=== PATIENT | female | born 1995 | race Caucasian/White ===

== ENCOUNTER 2020-12-01 01:31 | Emergency (ER) | payer OTHER, SELFPAY ==
--- NOTE | ~2020-12-01 | CT_ITS ---
EXAMINATION: CT ABDOMEN AND PELVIS WITH CONTRAST CLINICAL INFORMATION: Right lower quadrant pain COMPARISON: None TECHNIQUE: Multidetector volumetric images were obtained from the superior aspect of the liver through the pubic symphysis following administration 85 mL of Omnipaque 350 intravenous contrast. Sagittal and coronal reformatted images were obtained on the technologist's workstation. Oral contrast: No This CT examination was performed using dose optimization techniques as appropriate, variously including the following: *Automated exposure control *Adjustment of mA and/or kV according to patient size (this includes techniques or standardized protocols for targeted exams where dose is matched to indication/reason for exam; i.e. extremities or head) *Use of iterative reconstruction technique DLP: 310 mGy-cm FINDINGS: LUNG BASES: The visualized lung bases are unremarkable. LIVER, GALLBLADDER, AND BILIARY TREE: The liver is normal in size, shape, and attenuation. No focal hepatic lesion or biliary ductal dilatation is present. Gallbladder appears contracted. PANCREAS: Unremarkable. SPLEEN: Unremarkable. ADRENAL GLANDS: Unremarkable. KIDNEYS AND URETERS: The kidneys are normal in size, shape, and attenuation. No hydronephrosis, hydroureter, or obstructing calculi seen. No perinephric stranding. BLADDER: Partially distended and grossly unremarkable. GASTROINTESTINAL TRACT: Assessment for wall thickening in some segments of the colon is limited due to luminal collapse, though no significant pericolonic stranding is seen to strongly suggest a colitis. No evidence of bowel obstruction. The nondilated appendix containing foci of gas is suspected to course inferior to the cecum as seen on coronal image 30. No free fluid or free air is seen. ABDOMINAL WALL: No significant hernia is appreciated. LYMPH NODES: Normal. VASCULAR: Unremarkable. PELVIC VISCERA: Unremarkable. OSSEOUS STRUCTURES: Unremarkable. CT/CT abdomen pelvis w con IMPRESSION: No acute findings identified in the abdomen/pelvis.
[2020-12-01 02:14] VITALS: BP 114/73; PULSE 95; RESP 16; TEMP 36.7; O2SAT 95; BMI 18.0
--- NOTE | 2020-12-01 03:26 | PC.NURSE ---
IV established, labs and UA obtained. Pt aware of plan to await results and MD benjamin.
[2020-12-01 03:27] LABS: MANUAL DIFF FLAG NO
[2020-12-01 03:28] LABS: Basophils Percent Auto 0.1 % (0-2); Eosinophils Absolute Auto 0.1 X10*3/uL (0.0-0.4); Eosinophils Percent Auto 0.5 % (0-4); Hematocrit 47.2 % (37-47); Hemoglobin 16.3 g/dl (12.0-16.0); Imm Gran Abs Auto 0.04 X10*3/uL (0.00-0.03); Imm Gran Pct Auto 0.3 % (0.0-0.4); Lymphocytes Absolute Auto 2.4 X10*3/uL (1.2-4.9); Lymphocytes Percent Auto 15.9 % (20-40); Mean Corpuscular HGB Conc 34.5 g/dl (31.0-35.0); Mean Corpuscular Hemoglobin 33.4 pg (27.0-33.0); Mean Corpuscular Volume 96.7 fL (80-98); Mean Platelet Volume 9.5 fL (9.4-12.3); Monocytes Absolute Auto 1.2 X10*3/uL (0.1-1.2); Monocytes Percent Auto 7.9 % (2-11); Neutrophils Absolute Auto 11.5 X10*3/uL (2.0-8.3); Neutrophils Percent Auto 75.3 % (45-73); Platelet Count 362 X10*3/uL (160-400); Red Blood Count 4.88 X10*6/uL (4.20-5.50); Red Cell Distribution Width 12.7 % (11.0-16.0); White Blood Count 15.2 X10*3/uL (4.8-10.8)
[2020-12-01 03:50] LABS: Alanine Aminotransferase 12 U/L (0-31); Albumin Level 4.9 g/dL (3.5-5.0); Alkaline Phosphatase 108 U/L (39-117); Anion Gap 16 (12-20); Aspartate Amino Transferase 15 U/L (5-31); Bilirubin Total 0.6 mg/dL (0.0-1.0); Blood Urea Nitrogen 8 mg/dL (9-16); Calcium 10.3 mg/dL (8.4-10.2); Carbon Dioxide 28 mmol/L (22-29); Chloride 101 mmol/L (96-108); Creatinine Clr Calc Pharmacy 85.4; Estimated Glomerular Filt Rate > 60; Glucose Random 73 mg/dL (60-115); Glucose Urine UA NEG (NEG); Leukocyte Esterase Urine 3+ (NEG); Lipase 23 U/L (8-78); Nitrite Urine NEG (NEG); Potassium 3.6 mmol/L (3.3-5.1); Sodium 141 mmol/L (135-145); Total Protein 8.4 g/dL (6.5-8.0); UACC Culture Trigger YES; Urine Blood NEG (NEG); Urine Ketones NEG (NEG); Urine Protein NEG (NEG-TRACE)
[2020-12-01 03:52] LABS: Appearance Urine HAZY; Color Urine YELLOW
--- NOTE | 2020-12-01 04:04 | PC.NURSE ---
at bedside for primary eval.
[2020-12-01 04:10] LABS: Amorphous Sediment Urine TRACE /LPF; Mucus Urine 2+ /LPF; RBC Urine 0-2 /HPF (0); Squamous Epithelial Cell Urine 1+ /LPF; UPreg QC Valid YES; Urine Pregnancy NEGATIVE (NEGATIVE); WBC Clumps Urine NOTED
--- NOTE | 2020-12-01 04:17 | ED_ITS ---
HPI - Abdominal Pain General Chief Complaint: Abdominal Pain Stated Complaint: abdominal pain Time Seen by Provider: 12/01/20 04:08 Source: patient Mode of arrival: ambulatory History of Present Illness HPI narrative: 24-year-old female without significant past medical history presents with 2-3 weeks worsening abdominal pain that is associated with chills and nausea but no fevers or vomiting and denies any diarrhea or urinary pain/burning/frequency. Related Data Previous Rx's Medication Instructions Recorded cefixime 400 mg PO DAILY 7 Days #7 cap 12/01/20 Allergies Allergy/AdvReac Type Severity Reaction Status Date / Time No Known Allergies Allergy Unverified 12/01/20 02:13 Review of Systems Review of Systems Stated in HPI 10 point review of systems is otherwise negative. Physical Exam Vital Signs: Vital Signs: Last Vital Signs Temp 98.1 F 12/01/20 02:14 Pulse 95 12/01/20 02:14 Resp 16 12/01/20 02:14 BP 114/73 12/01/20 02:14 Pulse Ox 95 12/01/20 02:14 Body Mass Index 18.0 VITAL SIGNS: Reviewed. GENERAL: Well developed, well nourished, in no acute distress. HEAD: Normocephalic/atraumatic EYES: PERRLA, EOMI OROPHARYNX: no oral lesions noted, posterior pharynx clear NECK: Supple, no adenopathy LUNGS: Normal breath sounds. No adventitious sounds or accessory muscle use. SpO2<95> CARDIOVASCULAR: Regular rate and rhythm without noted murmurs ABDOMEN: Soft, tenderness and right lower quadrant/suprapubic area without rebound, non-distended with bowel sounds. Course Course Course Narrative: This is a 24-year-old female with history and clinical presentation suggestive of possible UTI, renal colic, appendicitis, ectopic . Review of all investigations consistent with UTI and possible pyelonephritis. Patient received 1 L of IV fluids as well as antibiotics, all results discussed with her bedside and she was discharged home in stable condition with a week- long course of treatment for pyelonephritis. MDM - Abdominal Pain Lab Data Result diagrams: 12/01/20 03:21 12/01/20 03:21 Labs: Lab Results 12/01/20 12/01/20 12/01/20 Range/Units 03:21 03:21 03:21 WBC 15.2 H (4.8-10.8) X10*3/uL RBC 4.88 (4.20-5.50) X10*6/uL Hgb 16.3 H (12.0-16.0) g/dl Hct 47.2 H (37-47) % MCV 96.7 (80-98) fL MCH 33.4 H (27.0-33.0) pg MCHC 34.5 (31.0-35.0) g/dl RDW 12.7 (11.0-16.0) % Plt Count 362 (160-400) X10*3/uL MPV 9.5 (9.4-12.3) fL Immature Gran % (Auto) 0.3 (0.0-0.4) % Neut % (Auto) 75.3 H (45-73) % Lymph % (Auto) 15.9 L (20-40) % [place] % (Auto) 7.9 (2-11) % Eos % (Auto) 0.5 (0-4) % Baso % (Auto) 0.1 (0-2) % Lymph # (Auto) 2.4 (1.2-4.9) X10*3/uL [place] # (Auto) 1.2 (0.1-1.2) X10*3/uL Eos # (Auto) 0.1 (0.0-0.4) X10*3/uL Baso # (Auto) 0.0 (0.0-0.2) X10*3/uL Abs Immat Gran (auto) 0.04 H (0.00-0.03) X10*3/uL Absolute Neuts (auto) 11.5 H (2.0-8.3) X10*3/uL Absolute Nucleated RBC 0.000 (0.0-0.012) X10*3/uL Nucleated RBC % (auto) 0.0 (0.0-0.2) /100WBC Sodium 141 (135-145) mmol/L Potassium 3.6 (3.3-5.1) mmol/L Chloride 101 (96-108) mmol/L Carbon Dioxide 28 (22-29) mmol/L Anion Gap 16 (12-20) BUN 8 L (9-16) mg/dL Creatinine 0.75 (0.5-1.4) mg/dL Estim Creat Clear Calc 85.4 Estimated GFR > 60 Random Glucose 73 (60-115) mg/dL Calcium 10.3 H (8.4-10.2) mg/dL Total Bilirubin 0.6 (0.0-1.0) mg/dL AST 15 (5-31) U/L ALT 12 (0-31) U/L Alkaline Phosphatase 108 (39-117) U/L Total Protein 8.4 H (6.5-8.0) g/dL Albumin 4.9 (3.5-5.0) g/dL Lipase 23 (8-78) U/L Urine Color YELLOW Urine Appearance HAZY Urine pH 6.0 (5.0-8.0) Ur Specific [place] 1.010 (1.005-1.025) Urine Protein NEG (NEG-TRACE) MG/DL Urine Glucose (UA) NEG (NEG) MG/DL Urine Ketones NEG (NEG) MG/DL Urine Blood NEG (NEG) Urine Nitrite NEG (NEG) Ur Leukocyte Esterase 3+ H (NEG) Urine RBC 0-2 (0) /HPF Urine WBC 15-29 H (0-4) /HPF Urine WBC Clumps NOTED Ur Squamous Epith Cells 1+ /LPF Amorphous Sediment TRACE /LPF Urine Bacteria NONE /LPF Urine Mucus 2+ /LPF Urine Test (NEGATIVE) 12/01/20 Range/Units 03:21 WBC (4.8-10.8) X10*3/uL RBC (4.20-5.50) X10*6/uL Hgb (12.0-16.0) g/dl Hct (37-47) % MCV (80-98) fL MCH (27.0-33.0) pg MCHC (31.0-35.0) g/dl RDW (11.0-16.0) % Plt Count (160-400) X10*3/uL MPV (9.4-12.3) fL Immature Gran % (Auto) (0.0-0.4) % Neut % (Auto) (45-73) % Lymph % (Auto) (20-40) % [place] % (Auto) (2-11) % Eos % (Auto) (0-4) % Baso % (Auto) (0-2) % Lymph # (Auto) (1.2-4.9) X10*3/uL [place] # (Auto) (0.1-1.2) X10*3/uL Eos # (Auto) (0.0-0.4) X10*3/uL Baso # (Auto) (0.0-0.2) X10*3/uL Abs Immat Gran (auto) (0.00-0.03) X10*3/uL Absolute Neuts (auto) (2.0-8.3) X10*3/uL Absolute Nucleated RBC (0.0-0.012) X10*3/uL Nucleated RBC % (auto) (0.0-0.2) /100WBC Sodium (135-145) mmol/L Potassium (3.3-5.1) mmol/L Chloride (96-108) mmol/L Carbon Dioxide (22-29) mmol/L Anion Gap (12-20) BUN (9-16) mg/dL Creatinine (0.5-1.4) mg/dL Estim Creat Clear Calc Estimated GFR Random Glucose (60-115) mg/dL Calcium (8.4-10.2) mg/dL Total Bilirubin (0.0-1.0) mg/dL AST (5-31) U/L ALT (0-31) U/L Alkaline Phosphatase (39-117) U/L Total Protein (6.5-8.0) g/dL Albumin (3.5-5.0) g/dL Lipase (8-78) U/L Urine Color Urine Appearance Urine pH (5.0-8.0) Ur Specific [place] (1.005-1.025) Urine Protein (NEG-TRACE) MG/DL Urine Glucose (UA) (NEG) MG/DL Urine Ketones (NEG) MG/DL Urine Blood (NEG) Urine Nitrite (NEG) Ur Leukocyte Esterase (NEG) Urine RBC (0) /HPF Urine WBC (0-4) /HPF Urine WBC Clumps Ur Squamous Epith Cells /LPF Amorphous Sediment /LPF Urine Bacteria /LPF Urine Mucus /LPF Urine Test NEGATIVE (NEGATIVE) Discharge Plan Discharge Clinical Impression: Pyelonephritis Patient Disposition: Home, Self-Care Instructions: Kidney Infection (ED) Additional Instructions: 1. Recommend [id number] Tylenol/ibuprofen as needed for pain control. 2. Increase fluid hydration especially with water. And follow-up with your primary care provider in the next 2-3 days for re-evaluation. Return to the ER for any acute worsening of symptoms. Prescriptions: New cefixime 400 mg capsule 400 mg PO DAILY 7 Days Qty: 7 RF: 0 Referrals: Physician,None [Primary Care Provider] - 2 days PMFSH Past Medical History Source: nursing notes reviewed Social History Social History Advance Directives: No Advance Directives Information Provided: No Patient : No
--- NOTE | 2020-12-01 04:25 | PC.NURSE ---
Off to CT on hospital bed.
[2020-12-01] MEDS: iohexoL 350 MG/ML 100 ML INFUS..BTL 85 ML IV (04:33)
[2020-12-01] MEDS: 0.9 % Sodium Chloride 1,000 ML 999 ML IV (04:38)
[2020-12-01] MEDS: cefTRIAXone sodium 1 GM in 0.9 % Sodium Chloride 50 ML IV (04:38)
--- NOTE | 2020-12-01 04:38 | PC.NURSE ---
Addendum entered by Naomi Dawson 12/01/20 06:20: Per , no BCX required. Original Note: Pt returns from CT, medicated per AUG.
[2020-12-01 06:21] VITALS: BP 104/73; PULSE 84; RESP 20; O2SAT 96
[2020-12-01] MEDS: Ibuprofen 400 MG TABLET PO (06:21)
[2020-12-01] MEDS: Acetaminophen 325 MG TABLET 975 MG PO (06:21)
== END 2020-12-01 06:18 | disposition home or self-care (01) ==
PROVIDERS: Emergency Provider Student in an Organized Health Care Education/Training Program
DX: N12 Tubulo-interstitial nephritis, not specified as acute or chronic (principal); R10.9 Unspecified abdominal pain; Z79.899 Other long term (current) drug therapy
CPT/HCPCS: 36415; 74177; 80053; 81001; 81003; 81025; 83690; 85025; 87086; 96365; 99284; J0696; Q9967

== ENCOUNTER 2021-03-20 13:53 | Emergency (ER) | payer OTHER, SELFPAY ==
[2021-03-20 15:21] VITALS: BP 123/88; PULSE 94; RESP 16; TEMP 36.8; O2SAT 98; BMI 18.0
[2021-03-20 16:55] LABS: MANUAL DIFF FLAG NO
[2021-03-20 16:56] LABS: Basophils Percent Auto 0.1 % (0-2); Eosinophils Absolute Auto 0.1 X10*3/uL (0.0-0.4); Eosinophils Percent Auto 0.4 % (0-4); Hematocrit 43.5 % (37-47); Hemoglobin 15.1 g/dl (12.0-16.0); Imm Gran Abs Auto 0.07 X10*3/uL (0.00-0.03); Imm Gran Pct Auto 0.5 % (0.0-0.4); Lymphocytes Absolute Auto 1.3 X10*3/uL (1.2-4.9); Lymphocytes Percent Auto 8.7 % (20-40); Mean Corpuscular HGB Conc 34.7 g/dl (31.0-35.0); Mean Corpuscular Hemoglobin 33.3 pg (27.0-33.0); Mean Corpuscular Volume 95.8 fL (80-98); Mean Platelet Volume 10.5 fL (9.4-12.3); Monocytes Absolute Auto 0.9 X10*3/uL (0.1-1.2); Monocytes Percent Auto 5.7 % (2-11); Neutrophils Absolute Auto 12.6 X10*3/uL (2.0-8.3); Neutrophils Percent Auto 84.6 % (45-73); Platelet Count 248 X10*3/uL (160-400); Red Blood Count 4.54 X10*6/uL (4.20-5.50); Red Cell Distribution Width 12.9 % (11.0-16.0); White Blood Count 14.9 X10*3/uL (4.8-10.8)
[2021-03-20 17:17] LABS: Alanine Aminotransferase 10 U/L (0-31); Albumin Level 4.6 g/dL (3.5-5.0); Alkaline Phosphatase 76 U/L (39-117); Anion Gap 12 (12-20); Aspartate Amino Transferase 15 U/L (5-31); Bilirubin Total 0.8 mg/dL (0.0-1.0); Blood Urea Nitrogen 7 mg/dL (9-16); Calcium 9.7 mg/dL (8.4-10.2); Carbon Dioxide 25 mmol/L (22-29); Chloride 104 mmol/L (96-108); Creatinine Clr Calc Pharmacy 88.2; Estimated Glomerular Filt Rate > 60; Glucose Random 78 mg/dL (60-115); Potassium 4.1 mmol/L (3.3-5.1); Sodium 137 mmol/L (135-145); Total Protein 7.9 g/dL (6.5-8.0)
[2021-03-20] MEDS: Acetaminophen 325 MG TABLET 650 MG PO (17:45)
--- NOTE | 2021-03-20 19:49 | ED.FEMALEGU ---
HPI - Female Genitourinary General Chief complaint: Urogenital-Female Stated complaint: abd pain Time Seen by Provider: 03/20/21 18:49 Source: patient Mode of arrival: ambulatory Limitations: no limitations History of Present Illness HPI Narrative: 25-year-old female presents emergency room complaining of dysuria and frequency. Patient states that feels like she is having UTI she had a urinary tract infection approximately 3 months ago. She states she was treated the micro that I checked was actually negative. Patient denies fever cough chest pain or shortness of breath she denies any back pain she states that she wait much longer last time. She improved with antibiotics. He is not taking anything for pain today. MD elicited complaint: dysuria and UTI Related Data Previous Rx's Medication Instructions Recorded cefixime 400 mg capsule 400 mg PO DAILY 7 Days #7 cap 12/01/20 nitrofurantoin macrocrystal 100 mg 100 mg PO BID 7 Days #14 cap 03/20/21 capsule phenazopyridine 100 mg tablet 100 mg PO TID PRN #20 tab 03/20/21 (Pyridium) Allergies Allergy/AdvReac Type Severity Reaction Status Date / Time No Known Allergies Allergy Unverified 12/01/20 02:13 Review of Systems Review of Systems: Review of systems: General: Patient denies any fever chills recent illness or falls Musculoskeletal: Denies back pain or body aches or other injuries HEENT: denies headache, runny nose, ear pain Respiratory: denies shortness of breath, cough Cardiovascular: no chest pain or palpitations : dysuria, frequency she states she has finished. But has noticed some spotting. Abdomen: no nausea vomiting denies abdominal pain Extremities: no swelling, no pain Skin: no diaphoresis Yes all other systems are reviewed and are negative PMFSH Social History Social History Advance Directives: No Advance Directives Information Provided: Yes Physical Exam Vital Signs: Vital Signs: Last Vital Signs Temp 98.3 F 03/20/21 15:21 Pulse 94 03/20/21 15:21 Resp 16 03/20/21 15:21 BP 123/88 03/20/21 15:21 Pulse Ox 98 03/20/21 15:21 Body Mass Index 18.0 General: Well-appearing well-nourished in no signs of distress HEENT: Normocephalic atraumatic Neck: No signs of JVD, no masses no tenderness or lymphadenopathy Cardiovascular: Regular rate and rhythm Respiratory: Clear to auscultation bilaterally Abdomen: Soft mild lower tenderness no masses no CVA tenderness Extremities: Normal pedal pulses no signs of edema Skin: Dry warm no rashes Back: No tenderness full ROM MDM - Female Genitourinary MDM Narrative Medical decision making narrative: Concern for UTI patient's labs show mild white count of 14 her microbiology from previous visit did not grow anything out. Of stool with Pyridium nitrofurantoin and reassess after I get the urine. 2031 Urine shows a UTI I will treat with nitrofurantoin and send home with PCP follow up. Lab Data Result diagrams: 03/20/21 16:51 03/20/21 16:51 Labs: Lab Results 03/20/21 03/20/21 03/20/21 Range/Units 16:51 16:51 20:11 WBC 14.9 H (4.8-10.8) X10*3/uL RBC 4.54 (4.20-5.50) X10*6/uL Hgb 15.1 (12.0-16.0) g/dl Hct 43.5 (37-47) % MCV 95.8 (80-98) fL MCH 33.3 H (27.0-33.0) pg MCHC 34.7 (31.0-35.0) g/dl RDW 12.9 (11.0-16.0) % Plt Count 248 D (160-400) X10*3/uL MPV 10.5 (9.4-12.3) fL Immature Gran % (Auto) 0.5 H (0.0-0.4) % Neut % (Auto) 84.6 H (45-73) % Lymph % (Auto) 8.7 L (20-40) % [place] % (Auto) 5.7 (2-11) % Eos % (Auto) 0.4 (0-4) % Baso % (Auto) 0.1 (0-2) % Lymph # (Auto) 1.3 (1.2-4.9) X10*3/uL [place] # (Auto) 0.9 (0.1-1.2) X10*3/uL Eos # (Auto) 0.1 (0.0-0.4) X10*3/uL Baso # (Auto) 0.0 (0.0-0.2) X10*3/uL Abs Immat Gran (auto) 0.07 H (0.00-0.03) X10*3/uL Absolute Neuts (auto) 12.6 H (2.0-8.3) X10*3/uL Absolute Nucleated RBC 0.000 (0.0-0.012) X10*3/uL Nucleated RBC % (auto) 0.0 (0.0-0.2) /100WBC Sodium 137 (135-145) mmol/L Potassium 4.1 (3.3-5.1) mmol/L Chloride 104 (96-108) mmol/L Carbon Dioxide 25 (22-29) mmol/L Anion Gap 12 (12-20) BUN 7 L (9-16) mg/dL Creatinine 0.72 (0.5-1.4) mg/dL Estim Creat Clear Calc 88.2 Estimated GFR > 60 Random Glucose 78 (60-115) mg/dL Calcium 9.7 (8.4-10.2) mg/dL Total Bilirubin 0.8 (0.0-1.0) mg/dL AST 15 (5-31) U/L ALT 10 (0-31) U/L Alkaline Phosphatase 76 D (39-117) U/L Total Protein 7.9 (6.5-8.0) g/dL Albumin 4.6 (3.5-5.0) g/dL Urine Color YELLOW Urine Appearance CLEAR Urine pH 6.5 (5.0-8.0) Ur Specific [place] 1.010 (1.005-1.025) Urine Protein NEG (NEG-TRACE) MG/DL Urine Glucose (UA) NEG (NEG) MG/DL Urine Ketones 15 (NEG) MG/DL Urine Blood 3+ H (NEG) Urine Nitrite NEG (NEG) Ur Leukocyte Esterase 2+ H (NEG) Urine RBC 15-29 H (0) /HPF Urine WBC 30-49 H (0-4) /HPF Ur Squamous Epith Cells 3+ /LPF Urine Bacteria 1+ /LPF Discharge Plan Discharge Clinical Impression: Urinary tract infection Patient Disposition: Home, Self-Care Instructions: Acute Urinary Retention in Women (ED) Additional Instructions: Please call follow with her doctor if you have any other concerns please do not hesitate to come back to emergency department. Prescriptions: New nitrofurantoin macrocrystal 100 mg capsule 100 mg PO BID 7 Days Qty: 14 RF: 0 phenazopyridine [Pyridium] 100 mg tablet 100 mg PO TID PRN (Reason: dysuria) Qty: 20 RF: 0 No Action cefixime 400 mg capsule 400 mg PO DAILY 7 Days Qty: 7 RF: 0
[2021-03-20 20:19] LABS: Appearance Urine CLEAR; Color Urine YELLOW; Glucose Urine UA NEG (NEG); Leukocyte Esterase Urine 2+ (NEG); Nitrite Urine NEG (NEG); PH 6.5 (5.0-8.0); UACC Culture Trigger YES; Urine Blood 3+ (NEG); Urine Ketones 15 MG/DL (NEG); Urine Protein NEG (NEG-TRACE)
[2021-03-20 20:24] LABS: Bacteria Urine 1+ /LPF; Squamous Epithelial Cell Urine 3+ /LPF; WBC Urine 30-49 /HPF (0-4)
[2021-03-20] MEDS: Phenazopyridine HCL 100 MG TABLET PO (20:35)
[2021-03-20 20:39] VITALS: BP 104/72; PULSE 75; RESP 16; TEMP 36.6; O2SAT 99
[2021-03-20] MEDS: nitrofurantoin macrocrystaL 50 MG CAPSULE 100 MG PO (20:44)
--- NOTE | 2021-03-20 20:45 | PC.NURSE ---
discharge instruction given and medicated per mar
== END 2021-03-20 20:51 | disposition home or self-care (01) ==
LOC: HO.ED 20:03
PROVIDERS: Emergency Provider Student in an Organized Health Care Education/Training Program
DX: N39.0 Urinary tract infection, site not specified (principal); R30.0 Dysuria; Z79.899 Other long term (current) drug therapy
CPT/HCPCS: 36415; 80053; 81001; 85025; 87086; 99283; 99284

== ENCOUNTER 2022-05-10 04:31 | Emergency (ER) | payer MEDICAID, SELFPAY ==
--- NOTE | ~2022-05-10 | XR_ITS ---
EXAMINATION: XR CHEST CLINICAL INFORMATION: Injury to ribs. COMPARISON: None TECHNIQUE: 2 views of the chest were obtained. FINDINGS: Normal appearance of the cardiomediastinal silhouette. No focal airspace opacity, pleural effusion or pneumothorax. No evidence of displaced rib fractures. The imaged upper abdomen is within normal limits. XR/XR chest 2V IMPRESSION: 1. No acute cardiopulmonary findings. 2. No evidence of displaced rib fractures. However, if a rib fracture is highly clinically suspected, recommend correlation with dedicated radiographic views of the rib cage, including oblique views.
[2022-05-10 04:41] VITALS: BP 144/88; PULSE 121; RESP 22; TEMP 36.8; O2SAT 96; BMI 19.9
--- NOTE | 2022-05-10 04:54 | ED.GENADULT ---
HPI - General Adult General Chief complaint: General Medical Stated complaint: Possible rib fracture Time Seen by Provider: 05/10/22 04:51 Source: patient Mode of arrival: ambulatory Limitations: no limitations History of Present Illness HPI narrative: Patient comes in the emergency room complaining of right-sided rib pain. Patient states that she has an extra rib on the right side. Patient was at work, dancing on a pole, patient states that she twisted her body wrong and heard a crack coming from her extra rib. Patient states that she thinks that her x-ray rib has been displaced. Patient has not taking any pain medication. Patient is coughing, no fever chills, no URI or UTI symptoms. Patient states that any movement she makes, her ribs hurt? Related Data Previous Rx's Medication Instructions Recorded cefixime 400 mg capsule 400 mg PO DAILY 7 days #7 caps 12/01/20 nitrofurantoin macrocrystal 100 mg 100 mg PO BID 7 days #14 caps 03/20/21 capsule phenazopyridine 100 mg tablet 100 mg PO TID PRN dysuria 6 doses 03/20/21 (Pyridium) #20 tabs cyclobenzaprine 5 mg tablet 5 mg PO TID PRN muscle spasm #7 05/10/22 tabs ibuprofen 600 mg tablet 600 mg PO TID PRN fever or pain 05/10/22 #20 tabs Allergies Allergy/AdvReac Type Severity Reaction Status Date / Time No Known Allergies Allergy Unverified 12/01/20 02:13 Review of Systems Review of Systems: Constitutional : No Weight loss, No Fever, No Chills, No Night Sweats, No Fatigue, No Malaise ENT/Mouth : No Hearing loss, No Ear Pain, No Nasal Congestion, No Sinus Pain, No Hoarseness, No sore throat, No Rhinorrhea, No Swallowing Difficulty Eyes: No Eye Pain, No Swelling, No Redness, No Foreign Body, No Discharge, No Vision Changes Cardiovascular : No Chest Pain, No SOB, No Dyspnea on Exertion, No Orthopnea, No Edema, No Palpitations Respiratory : No Cough, No Sputum, No Wheezing, No Smoke Exposure, No Dyspnea Gastrointestinal : No Nausea, No Vomiting, No Diarrhea, No Constipation, No abdominal Pain, No Hematochezia, No Melena Genitourinary : no irregular bleeding, No Dysuria, No Urinary Frequency, No Hematuria, No Urinary Incontinence, No Urgency, No Flank Pain, No Urinary Flow Changes, No Hesitancy Musculoskeletal : , complaining of right lower rib pain, No joint pain, No Myalgias, No Joint Swelling Skin : No Skin Lesions, No rash Neuro : No Weakness, No Numbness, No Paresthesias, No Loss of Consciousness, No Dizziness, No Headache Psych : No Anxiety/Panic, No Depression, No SI/HI/AH/VH, No Social Issues, Heme/Lymph: No Bruising, No Bleeding,No Lymphadenopathy Endocrine : No Polyuria, No Polydipsia, No Temperature Intolerance [facility] Social History Social History Smoked in Last 30 Days: Yes Substance Use Type: Marijuana Advance Directives: No Advance Directives Information Provided: Yes Physical Exam ED Vital Signs: Vital Signs - 24 hr 05/10/22 04:41 05/10/22 04:41 05/10/22 05:03 Temperature 98.3 F 98.3 F 98.3 F Pulse Rate 121 H 121 H 103 H Respiratory Rate 22 H 22 H 20 Blood Pressure 144/88 H 144/88 H 121/79 Pulse Oximetry 96 96 94 Oxygen Delivery Method Room Air Room Air Room Air BMI result Body Mass Index 19.9 Const Other: Appearance: Alert. Oriented X3. No acute distress. Eyes: Pupils equal, round and reactive to light. ENT: Pharynx normal. Neck: Normal inspection. Neck supple. No lymph nodes noted. No crepitus CVS: Normal heart rate and rhythm. Pulses normal. Normal S1 and S2 Respiratory: No respiratory distress. Breath sounds normal. No Wheezing. No rales Abdomen: Soft and nontender. No rigidity. No distention. Musculoskeletal: Pain to palpation over the lateral lower ribs on the right side Skin: Skin warm and dry. Normal skin color. Normal skin turgor. Extremities: No lower extremity edema. No Lacerations. No Rash Neuro: Oriented X 3. No motor deficit. No sensory deficit. Moving all extremities. No slurred speech. CN 2 through 12 grossly intact Psych: calm, cooperative, normal affect Course Course Course Narrative: X-ray pending X-ray does not show any acute abnormalities. Urinalysis shows trace leukocyte esterase. However, there was a large number of epithelial cells, patient does not have UTI symptoms, patient not be treated with antibiotics as it is not indicated. Medications Administered Discontinued Medications Generic Name Dose Route Start Last Admin Trade Name Freq PRN Reason Stop Dose Admin Ibuprofen 600 mg 05/10/22 04:54 05/10/22 05:30 Ibuprofen 600 Mg Tablet PO 05/10/22 04:55 600 mg ONCE ONE Administration Medical Decision Making Lab Data Labs: Lab Results 05/10/22 05/10/22 Range/Units 05:08 05:08 Urine Color Yellow Urine Appearance Clear Urine pH 6.0 (5.0-9.0) Ur Specific [place] 1.015 (1.005-1.025) Urine Protein 100 (2+) H (Neg-Trace) mg/dL Urine Glucose (UA) Negative (Negative) mg/dL Urine Ketones Trace (Negative) mg/dL Urine Blood Negative (Negative) Urine Nitrite Negative (Negative) Ur Leukocyte Esterase Trace H (Negative) Urine RBC 0-2 (0-2) /HPF Urine WBC 0-5 (0-5) /HPF Ur Squamous Epith Cells 11-20 (0-2) /HPF Urine Bacteria Trace (None Seen) Hyaline Casts 3-5 (0-2) /LPF Granular Casts Present Urine Test NEGATIVE (NEGATIVE) Imaging Data Chest x-ray: Radiologist's impression: FINDINGS: Normal appearance of the cardiomediastinal silhouette. No focal airspace opacity, pleural effusion or pneumothorax. No evidence of displaced rib fractures. The imaged upper abdomen is within normal limits. XR/XR chest 2V IMPRESSION: 1.? No acute cardiopulmonary findings. 2.? No evidence of displaced rib fractures. However, if a rib fracture is highly clinically suspected, recommend correlation with dedicated radiographic views of the rib cage, including oblique views. Discharge Plan Discharge Clinical Impression: Costochondritis Patient Disposition: Home, Self-Care Instructions: Costochondritis (ED) Additional Instructions: Please follow-up with your primary care physician tomorrow. If you have any worsening or new symptoms, please return to the emergency room or call 911 Prescriptions: New cyclobenzaprine 5 mg tablet 5 mg PO TID PRN (Reason: muscle spasm) Qty: 7 0RF ibuprofen 600 mg tablet 600 mg PO TID PRN (Reason: fever or pain) Qty: 20 0RF No Action cefixime 400 mg capsule 400 mg PO DAILY 7 Days Qty: 7 0RF nitrofurantoin macrocrystal 100 mg capsule 100 mg PO BID 7 Days Qty: 14 0RF Rx Instructions: must administer with a meal/food phenazopyridine [Pyridium] 100 mg tablet 100 mg PO TID PRN (Reason: dysuria) Qty: 20 0RF Stand Alone Forms: Work/School Release
[2022-05-10 05:03] VITALS: BP 121/79; PULSE 103; RESP 20; TEMP 36.8; O2SAT 94
[2022-05-10 05:16] LABS: Appearance Urine Clear; Color Urine Yellow; Glucose Urine UA Negative (Negative); Leukocyte Esterase Urine Trace (Negative); Nitrite Urine Negative (Negative); Specific Gravity - Urine 1.015 (1.005-1.025); UMIC TRIGGER UACC YES; Urine Blood Negative (Negative); Urine Ketones Trace mg/dL (Negative); Urine Protein 100 (2+) mg/dL (Neg-Trace)
--- OUTSIDE RECORDS SUMMARY | 2022-05-10 05:17 | XMS_ITS | Continuity of Care Document ---
:1995 Author Organization [facility] Adult Address [address] [place] [address]- Care Team Providers Name Role Phone Not on Staff, PCP Primary Care Physician Unavailable Encounter [facility] Date(s): 01/04/20 - 02/03/[address] [facility] Adult [address] [place] [address]- [facility] Attending Physician: Admtr, Ar8 Admitting Physician: Admtr, Ar8 Referring Physician: Admtr, Ar8 Allergies, Adverse Reactions, Alerts Substance Reaction Severity Status NKA Active Social History Social History Type Response Sex Female
--- OUTSIDE RECORDS SUMMARY | 2022-05-10 05:17 | XMS_ITS | Continuity of Care Document ---
:1995 Author Organization [facility] Adult Address [address] [place] [address]- Care Team Providers Name Role Phone Not on Staff, PCP Primary Care Physician Unavailable Encounter [facility] Date(s): 01/18/21 - 02/17/21 [facility] Adult [address] [place] [address]- Attending Physician: Admtr, Ar8 Admitting Physician: Admtr, Ar8 Referring Physician: Admtr, Ar8 Allergies, Adverse Reactions, Alerts Substance Reaction Severity Status NKA Active Social History Social History Type Response Sex Female
[2022-05-10 05:18] LABS: UPreg QC Valid YES; Urine Pregnancy NEGATIVE (NEGATIVE)
--- OUTSIDE RECORDS SUMMARY | 2022-05-10 05:18 | XMS_ITS | Continuity of Care Document ---
:1995 Author Organization [facility] Adult Address [address] [place] [address]- Care Team Providers Name Role Phone Not on Staff, PCP Primary Care Physician Unavailable Encounter [facility] Date(s): 01/16/21 - 02/17/21 [facility] Adult [address] [place] [address]- Attending Physician: Skyla Germain NP Allergies, Adverse Reactions, Alerts Substance Reaction Severity Status NKA Active Social History Social History Type Response Sex Female
--- OUTSIDE RECORDS SUMMARY | 2022-05-10 05:18 | XMS_ITS | Continuity of Care Document ---
:1995 Author Organization [facility] Adult Address [address] [place] [address]- Care Team Providers Name Role Phone Not on Staff, PCP Primary Care Physician Unavailable Encounter [facility] Date(s): 10/06/19 - 02/03/20 [facility] Adult [address] [place] [address]- [facility] Attending Physician: Rivera Reid Allergies, Adverse Reactions, Alerts Substance Reaction Severity Status NKA Active Social History Social History Type Response Sex Female
--- OUTSIDE RECORDS SUMMARY | 2022-05-10 05:18 | XMS_ITS | Continuity of Care Document ---
:1995 Author Organization [facility] Address [address] [place] [address]- Care Team Providers Name Role Phone Not on Staff, PCP Primary Care Physician Unavailable Encounter [facility] Date(s): 11/30/20 - 11/30/20 [facility] [address] [place] [address]- Discharge Disposition: A-D/C Walkout Attending Physician: Not on Staff, Attending MD Admitting Physician: Not on Staff, Admitting MD Referring Physician: Not on Staff, Referring MD Allergies, Adverse Reactions, Alerts Substance Reaction Severity Status NKA Active Vital Signs Most recent to oldest [Reference Range]: 1 Oxygen Saturation [94-100 %] 97 % (11/30/20 4:27 AM) Pulse Rate [55-90 bpm] 117 bpm *H* (11/30/20 4:27 AM) Blood Pressure [90-138/55-84 mm Hg] 129/81 mm Hg (11/30/20 4:27 AM) Respiratory Rate [16-30 br/min] 16 br/min (11/30/20 4:27 AM) Temperature [96.8-100.4 DegF] 98.2 DegF (11/30/20 4:27 AM) Mode of Delivery (Oxygen) Room air (11/30/20 4:27 AM) Blood pressure sites Arm, right (11/30/20 4:27 AM) Temperature Route Oral (11/30/20 4:27 AM) Social History Social History Type Response Sex Female
--- OUTSIDE RECORDS SUMMARY | 2022-05-10 05:18 | XMS_ITS | Continuity of Care Document ---
:1995 Author Organization [facility] Address [address] [place] [address]- Care Team Providers Name Role Phone Not on Staff, PCP Primary Care Physician Unavailable Encounter [facility] Date(s): 11/30/20 - 12/01/20 [facility] [address] [place] [address]- Discharge Disposition: A-D/C Walkout Attending Physician: Not on Staff, Attending MD Admitting Physician: Not on Staff, Admitting MD Referring Physician: Not on Staff, Referring MD Allergies, Adverse Reactions, Alerts Substance Reaction Severity Status NKA Active Medications No Known Medications Vital Signs Most recent to oldest [Reference Range]: 1 2 Oxygen Saturation [94-100 %] 98 % 100 % (11/30/20 11:08 PM) (11/30/20 11:02 PM) Pulse Rate [55-90 bpm] 120 bpm 114 bpm *H* *H* (11/30/20 11:08 PM) (11/30/20 11:02 PM) Blood Pressure [90-138/55-84 mm Hg] 130/90 mm Hg (11/30/20 11:08 PM) Respiratory Rate [16-30 br/min] 16 br/min (11/30/20 11:08 PM) Temperature [96.8-100.4 DegF] 97.1 DegF (11/30/20 11:08 PM) Mode of Delivery (Oxygen) Room air Room air (11/30/20 11:08 PM) (11/30/20 11:02 PM) Blood pressure sites Arm, right (11/30/20 11:08 PM) Temperature Route Oral (11/30/20 11:08 PM) Social History Social History Type Response Sex Female
[2022-05-10] MEDS: Ibuprofen 600 MG TABLET PO (05:30)
[2022-05-10 05:32] LABS: Bacteria Urine Trace (None Seen); Granular Casts Urine Present; RBC Urine 0-2 /HPF (0-2); WBC Urine 0-5 /HPF (0-5)
--- NOTE | 2022-05-10 05:36 | PC.NURSE ---
administered ibuprofen 600 mg per MAR. Will continue to monitor.
--- NOTE | 2022-05-10 05:43 | PC.NURSE ---
Pt is able to speak in full sentences, she is not retracting. She is however guarding, leaning towards the affected side in a position. Pt required assistance getting into the bed as she stated it was too painful to get up into the bed on her own.
[2022-05-10] MEDS: Cyclobenzaprine HCl 10 MG TABLET PO (05:48)
--- NOTE | 2022-05-10 05:50 | PC.NURSE ---
Administered cyclobenzaprine per AUG.
--- NOTE | 2022-05-10 06:19 | PC.NURSE ---
Pt is alert and oriented. Discharge instructions given and explained to pt. Pt is able to ambulate safely.
== END 2022-05-10 06:20 | disposition home or self-care (01) ==
PROVIDERS: Emergency Provider Emergency Medicine
DX: M94.0 Chondrocostal junction syndrome [Tietze] (principal)
CPT/HCPCS: 71046; 81001; 81025; 99283; 99284

== ENCOUNTER 2024-03-25 15:29 | Emergency (ER) | payer MEDICAID, SELFPAY ==
--- NOTE | ~2024-03-25 | US_ITS ---
EXAMINATION: US OBSTETRICAL ULTRASOUND CLINICAL INFORMATION: Positive vaginal bleeding. Lower abdominal pain. COMPARISON: None available. LMP: 03/06/2024. Gestational age by maternal dates is 2 weeks 5 days Estimated date of delivery by maternal dates is 03/06/2024. TECHNIQUE: Transabdominal and transvaginal imaging of pelvis is performed. FINDINGS: The uterus is anteverted measuring 6.7 x 3.4 x 4.2 cm on transvaginal ultrasound. The endometrial thickness measures 0.2 cm. There is no intrauterine gestational sac, pole or yolk sac. Right ovary measures 2.8 x 1.6 x 2.0 cm and appears unremarkable. Left ovary measures 2.0 x 1.7 x 2.0 cm and appears unremarkable. There is small amount of free fluid in the cul-de-sac. US/US OB <= 14 weeks fetus IMPRESSION: No intrauterine seen. There is no adnexal mass. Normal uterus and ovaries. Electronically signed by: Silvestre Gonzalez MD 03/25/2024 07:45 PM EDT
--- NOTE | 2024-03-25 15:31 | ED_ITS ---
HPI - General Chief complaint: Vaginal Bleeding Stated complaint: preg+, having pain Time Seen by Provider: 03/25/24 21:36 Source: patient Mode of arrival: ambulatory Limitations: no limitations History of Present Illness ED Provider: Dr. Carlisle HPI Narrative: Patient is a who states that she had a test at home and it was postive. LMP 03/06. She has been spotting Related Data Previous Rx's ?Medication ?Instructions ?Recorded cefixime 400 mg capsule 400 mg PO DAILY 7 days #7 caps 12/01/20 nitrofurantoin macrocrystal 100 mg 100 mg PO BID 7 days #14 caps 03/20/21 capsule phenazopyridine 100 mg tablet 100 mg PO TID PRN dysuria 6 doses 03/20/21 (Pyridium) #20 tabs albuterol sulfate 90 mcg/actuation 1 inh inhalation QID PRN shortness 05/10/22 aerosol inhaler of breath or wheezing #6.7 grams cyclobenzaprine 5 mg tablet 5 mg PO TID PRN muscle spasm #7 05/10/22 tabs ibuprofen 600 mg tablet 600 mg PO TID PRN fever or pain 05/10/22 #20 tabs Allergies Allergy/AdvReac Type Severity Reaction Status Date / Time No Known Allergies Allergy Verified 03/25/24 15:39 Review of Systems 2 Review of Systems: Yes all other systems are reviewed and are negative Neurologic: Denies Sensory deficit (Neuro) [facility] Social History Social History Smoked in Last 30 Days: Yes Use of substances other than those prescribed or required for medical reasons: Yes Substance Use Type: Marijuana Advance Directives: No Advance Directives Information Provided: No Do you have a plan to hurt others: No Plan Patient : Yes (Pt reports found out this am she was .) Physical Exam 2 Vital Signs: Vital Signs: Last Vital Signs Temp 98.0 F 03/25/24 21:25 Pulse 60 03/25/24 21:25 Resp 20 03/25/24 21:25 BP 125/80 03/25/24 21:25 Pulse Ox 98 03/25/24 21:25 O2 Del Method Room Air 03/25/24 21:25 BMI result Body Mass Index 22.4 Const: General: healthy appearing Nutritional Appearance: average body habitus Orientation/consciousness: oriented to person and patient oriented x3 Limitations: no limitations HEENT: Head: Yes normal to inspection Ears: external ears normal General nose exam: Normal external nose present Mouth: Normal oral and palatal mucosa present and oropharynx normal Throat: Yes posterior oropharynx normal Eyes: General: appearance normal, both eyes and all related structures Neck: Other: supple Neck: Yes normal visual inspection Chest: Chest palpation & inspection: normal inspection of the chest Resp: Auscultation: clear to auscultation bilaterally Cardio: Jugular venous distension: no JVD Rate: regular rate Rhythm: r egular rhythm Heart sounds: S1 normal heart sound present and S2 normal heart sound present GI: Inspection: Yes normal to inspection Palpation (GI): Soft to palpation, nontender and No hepatosplenomegaly present Auscultation: normal bowel sounds : General: Yes no CVA tenderness Back/Spine/Pelvis: Back: no CVA tenderness Skin: General skin exam: no rashes or lesions noted Neuro: General: oriented to person and patient oriented x3 Cranial nerves: Yes CN's II-XII intact bilaterally Motor exam (neuro): 5/5 motor strength present throughout Sensory Exam: No Sensory deficit (Neuro) Extrem: General: Yes normal to inspection Psych: Appearance: grossly normal Course Course Course Narrative: This is a Rapid Medical Exam performed in triage by Veronica Brady PA-C. Full HPI, ROS and PE to be performed by primary ED provider. 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 denies fever, chills, N/V PE: abdomen soft w/mild suprapubic ttp. no rebound or guarding. Plan: labs, UA, US Reevaluation(s) Reevaluation #1: serum quant too low to see IUP, she will need a repeat in 3 days. She will go home with dx of threatened miscarriage Time: 21:49 Medical Decision Making Differential Diagnosis Differential Diagnoses: The differential diagnosis associated with the presentation includes (, miscarriage, threatened miscarriage, ectopic ) Admission/Observation Consideration of admission/observation: Escalation of care including admission/observation considered (upon arrival patient considered for admission) Lab Data 03/25/24 16:27 03/25/24 16:27 Labs: Lab Results 03/25/24 03/25/24 Range/Units 16:27 21:39 WBC 8.1 (4.8-10.8) X10*3/uL RBC 4.15 L (4.20-5.50) X10*6/uL Hgb 13.5 (12.0-16.0) g/dl Hct 38.1 (37.0-47.0) % MCV 91.8 (80.0-98.0) fL MCH 32.5 (27.0-33.0) pg MCHC 35.4 H (31.0-35.0) g/dl RDW 12.0 (11.0-16.0) % Plt Count 240 (160-400) X10*3/uL MPV 10.1 (9.4-12.3) fL Immature Gran % (Auto) 0.2 (0.0-0.4) % Neut % (Auto) 64.8 (45-73) % Lymph % (Auto) 23.0 (20-40) % [place] % (Auto) 10.6 (2-11) % Eos % (Auto) 1.2 (0-4) % Baso % (Auto) 0.2 (0-2) % Lymph # (Auto) 1.9 (1.2-4.9) X10*3/uL [place] # (Auto) 0.9 (0.1-1.2) X10*3/uL Eos # (Auto) 0.1 (0.0-0.4) X10*3/uL Baso # (Auto) 0.0 (0.0-0.2) X10*3/uL Abs Immat Gran (auto) 0.02 (0.00-0.03) X10*3/uL Absolute Neuts (auto) 5.2 (2.0-8.3) x10*3/uL Absolute Nucleated RBC 0.000 (0.0-0.012) X10*3/uL Nucleated RBC % (auto) 0.0 (0.0-0.2) /100WBC PT 12.2 (10.9-12.4) SEC INR 1.0 (0.9-1.1) Sodium 140 (135-145) mmol/L Potassium 3.6 (3.3-5.1) mmol/L Chloride 108 (96-108) mmol/L Carbon Dioxide 26 (22-29) mmol/L Anion Gap 10 L (12-20) BUN 14 (9-16) mg/dL Creatinine 0.71 (0.5-1.4) mg/dL Estim Creat Clear Calc 100.0 Estimated GFR > 60 Random Glucose 79 (60-115) mg/dL Calcium 9.8 (8.4-10.2) mg/dL Magnesium 1.9 (1.6-2.6) mg/dL Total Bilirubin 0.6 (0.0-1.0) mg/dL Direct Bilirubin 0.2 (0.0-0.5) mg/dL AST 22 (5-31) U/L ALT 18 (0-31) U/L Alkaline Phosphatase 58 (39-117) U/L Total Protein 7.5 (6.5-8.0) g/dL Albumin 4.4 (3.5-5.0) g/dL Lipase 14 (8-78) U/L Beta HCG, Quant 224 mIU/mL Urine Color Yellow Urine Appearance Clear Urine pH 6.5 (5.0-9.0) Ur Specific [place] 1.010 (1.005-1.025) Urine Protein Negative (Neg-Trace) mg/dL Urine Glucose (UA) Negative (Negative) mg/dL Urine Ketones Negative (Negative) mg/dL Urine Blood Moderate (2+) H (Negative) Urine Nitrite Negative (Negative) Ur Leukocyte Esterase Negative (Negative) Blood Type O Positive Independent Interpretation I performed an independent interpretation of an: Ultrasound (no IUP) Radiology Impression Discussion of test interpretation with radiology: I have reviewed the radiologist's reading. (and agree) Independent Historian Clinical information obtained from an independent historian. History obtained from or confirmed by: Spouse Discharge Plan Discharge Clinical Impression: Vaginal bleeding, Threatened Patient Disposition: Home, Self-Care Instructions: Threatened Miscarriage (ED) Prescriptions: No Action cefixime 400 mg capsule 400 mg PO DAILY 7 Days Qty: 7 0RF nitrofurantoin macrocrystal 100 mg capsule 100 mg PO BID 7 Days Qty: 14 0RF Rx Instructions: must administer with a meal/food phenazopyridine [Pyridium] 100 mg tablet 100 mg PO TID PRN (Reason: dysuria) Qty: 20 0RF cyclobenzaprine 5 mg tablet 5 mg PO TID PRN (Reason: muscle spasm) Qty: 7 0RF ibuprofen 600 mg tablet 600 mg PO TID PRN (Reason: fever or pain) Qty: 20 0RF albuterol sulfate 90 mcg/actuation HFA aerosol inhaler 1 inh inhalation QID PRN (Reason: shortness of breath or wheezing) Qty: 6.7 0RF Referrals: Isidro Brandt MD [Physician] - 3 days Print Language: [place]an
[2024-03-25 15:32] VITALS: BP 123/93; PULSE 84; RESP 20; TEMP 37.1; O2SAT 98; BMI 22.4
[2024-03-25 16:35] LABS: MANUAL DIFF FLAG NO
[2024-03-25 16:36] LABS: Basophils Percent Auto 0.2 % (0-2); Eosinophils Absolute Auto 0.1 X10*3/uL (0.0-0.4); Eosinophils Percent Auto 1.2 % (0-4); Hematocrit 38.1 % (37.0-47.0); Hemoglobin 13.5 g/dl (12.0-16.0); Imm Gran Abs Auto 0.02 X10*3/uL (0.00-0.03); Imm Gran Pct Auto 0.2 % (0.0-0.4); Lymphocytes Absolute Auto 1.9 X10*3/uL (1.2-4.9); Mean Corpuscular HGB Conc 35.4 g/dl (31.0-35.0); Mean Corpuscular Hemoglobin 32.5 pg (27.0-33.0); Mean Corpuscular Volume 91.8 fL (80.0-98.0); Mean Platelet Volume 10.1 fL (9.4-12.3); Monocytes Absolute Auto 0.9 X10*3/uL (0.1-1.2); Monocytes Percent Auto 10.6 % (2-11); Neutrophils Absolute Auto 5.2 x10*3/uL (2.0-8.3); Neutrophils Percent Auto 64.8 % (45-73); Platelet Count 240 X10*3/uL (160-400); Red Blood Count 4.15 X10*6/uL (4.20-5.50); White Blood Count 8.1 X10*3/uL (4.8-10.8)
[2024-03-25 16:41] LABS: Prothrombin Time 12.2 SEC (10.9-12.4)
[2024-03-25 16:58] LABS: Alanine Aminotransferase 18 U/L (0-31); Albumin Level 4.4 g/dL (3.5-5.0); Alkaline Phosphatase 58 U/L (39-117); Anion Gap 10 (12-20); Aspartate Amino Transferase 22 U/L (5-31); Bilirubin Direct 0.2 mg/dL (0.0-0.5); Bilirubin Total 0.6 mg/dL (0.0-1.0); Blood Urea Nitrogen 14 mg/dL (9-16); Calcium 9.8 mg/dL (8.4-10.2); Carbon Dioxide 26 mmol/L (22-29); Chloride 108 mmol/L (96-108); Estimated Glomerular Filt Rate > 60; Glucose Random 79 mg/dL (60-115); HCG Quantitative 224 mIU/mL; Lipase 14 U/L (8-78); Magnesium 1.9 mg/dL (1.6-2.6); Potassium 3.6 mmol/L (3.3-5.1); Sodium 140 mmol/L (135-145); Total Protein 7.5 g/dL (6.5-8.0)
[2024-03-25 21:25] VITALS: BP 125/80; PULSE 60; RESP 20; TEMP 36.7; O2SAT 98
--- NOTE | 2024-03-25 21:30 | PC.NURSE ---
Pt a&x4, no signs of distress Pt ambulates with a steady gait Pt reports got her period on 03/06 that lasted 5 days then began to bleed a few days after her period ended and abd cramping with onset x2 days ago. Pt denies n/v/d. Pts SO at bedside Plan of care ongoing.
[2024-03-25 21:49] LABS: Appearance Urine Clear; Color Urine Yellow; Glucose Urine UA Negative (Negative); Leukocyte Esterase Urine Negative (Negative); Nitrite Urine Negative (Negative); PH 6.5 (5.0-9.0); UMIC TRIGGER UACC YES; Urine Blood Moderate (2+) (Negative); Urine Ketones Negative (Negative); Urine Protein Negative (Neg-Trace)
[2024-03-25 21:58] VITALS: BP 125/80; PULSE 60; RESP 20; TEMP 36.7; O2SAT 98
[2024-03-25 21:58] LABS: Bacteria Urine None Seen (None Seen); Hyaline Casts Urine 0-2 /LPF (0-2); RBC Urine 0-2 /HPF (0-2); Squamous Epithelial Cell Urine 0-2 /HPF (0-2); WBC Urine 0-5 /HPF (0-5)
== END 2024-03-25 22:00 | disposition home or self-care (01) ==
PROVIDERS: Physician Assistant; Emergency Provider Emergency Medicine
DX: O20.0 Threatened abortion (principal); Z3A.01 Less than 8 weeks gestation of pregnancy
CPT/HCPCS: 36415; 76801; 80048; 80076; 81001; 83690; 83735; 84702; 85025; 85610; 86900; 86901; 99284

== ENCOUNTER 2024-07-09 07:45 | Emergency (ER) | payer MEDICAID, SELFPAY ==
--- NOTE | ~2024-07-09 | US_ITS ---
CLINICAL HISTORY: LMP 12 1, abd cramping, confirm IUP, r o ectopic US OB 1st trimester transabdominal Comparison: None Findings: Single intrauterine . Mean sac diameter: 0.8 cm. EGA: 5 weeks 1 day. Previously established gestational age: N/A. No other products of conception identified No subchorionic bleed. There is a possible left ovarian 1.9 x 1.8 x 1.6 cm corpus luteal cyst. There is minimal simple appearing pelvic cul-de-sac fluid. There are no other pelvic masses identified on the current study. IMPRESSION: Possible single intrauterine gestational sac estimated 5 weeks 1 day gestational age by today's ultrasound criteria. This document has been electronically signed by: Josef Theodore MD on 07/09/2024 10:04:47
[2024-07-09 07:53] VITALS: BP 121/75; PULSE 86; RESP 19; TEMP 36.6; O2SAT 99; BMI 23.1
--- NOTE | 2024-07-09 08:11 | ED.GENADULT ---
HPI - General Adult General Chief complaint: Abdominal Pain Stated complaint: preg+ , cramping Time Seen by Provider: 07/09/24 08:11 Source: patient, RN notes reviewed and old records reviewed Mode of arrival: ambulatory Limitations: no limitations History of Present Illness ED Provider: Garrett VAZQUEZ narrative: Patient is a female, miscarriage in March of 2024, recently took home test which was positive, LMP 05/29/24 presenting to the ED with complaint of lower abdominal cramping. 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 Denies any nausea, vomiting, diarrhea. Denies urinary symptoms. Denies vaginal bleeding or other abnormal vaginal discharge. complaint: abdominal cramping Onset (ago): day(s) Location: abdomen Radiation: non-radiation Quality: other (cramping) Associated symptoms: denies other symptoms Treatments prior to arrival: none Related Data Previous Rx's ?Medication ?Instructions ?Recorded cefixime 400 mg capsule 400 mg PO DAILY 7 days #7 caps 12/01/20 nitrofurantoin macrocrystal 100 mg 100 mg PO BID 7 days #14 caps 03/20/21 capsule phenazopyridine 100 mg tablet 100 mg PO TID PRN dysuria 6 doses 03/20/21 (Pyridium) #20 tabs albuterol sulfate 90 mcg/actuation 1 inh inhalation QID PRN shortness 05/10/22 aerosol inhaler of breath or wheezing #6.7 grams cyclobenzaprine 5 mg tablet 5 mg PO TID PRN muscle spasm #7 05/10/22 tabs ibuprofen 600 mg tablet 600 mg PO TID PRN fever or pain 05/10/22 #20 tabs Allergies Allergy/AdvReac Type Severity Reaction Status Date / Time No Known Allergies Allergy Verified 07/09/24 07:54 Review of Systems Review of Systems: As per HPI Yes all other systems are reviewed and are negative Constitutional: Constitutional: Reports as per HPI [facility] Social History Social History Substance Use Type: Marijuana Advance Directives: No Advance Directives Information Provided: Yes Do you have a plan to hurt others: No Plan Physical Exam ED Vital Signs: Vital Signs - 24 hr 07/09/24 07:53 Temperature 98 F Pulse Rate 86 Respiratory Rate 19 Blood Pressure 121/75 Pulse Oximetry 99 Oxygen Delivery Method Room Air BMI result Body Mass Index 23.1 Vital signs have been reviewed and appear to be correct. Blood pressure normal. Heart rate normal. Respiratory rate normal. Temperature normal. Oxygen saturation normal. Const General: cooperative, healthy appearing and no acute distress Orientation/consciousness: oriented to person, oriented to place, oriented to time and patient oriented x3 Limitations: no limitations HENMT Head: Yes normocephalic and Yes atraumatic Ears: external ears normal General nose exam: Normal external nose present Face and sinus: Yes face symmetric Mouth: oropharynx normal and moist mucous membranes Throat: Yes uvula midline Eyes Pupils: Equal, round and reactive pupils present Neck Neck: Yes normal visual inspection and Yes supple Resp Effort & Inspection: normal respiratory effort and able to speak in complete sentences Auscultation: clear to auscultation bilaterally Cardio Rate: regular rate Rhythm: regular rhythm Heart sounds: S1 normal heart sound present and S2 normal heart sound present GI Palpation (GI): Soft to palpation and nontender Auscultation: normoactive bowel sounds General: Yes no CVA tenderness Back/Spine/Pelvis Back: no CVA tenderness Skin General skin exam: elasticity normal and turgor normal Neuro General: oriented to person, oriented to place, oriented to time, patient oriented x3, moves all extremities, no focal motor deficits and CN's II-XI intact bilaterally Cranial nerves: Yes Equal, round and reactive pupils present Cognition (Neuro): normal cognition Extrem General: Yes full ROM, Yes no pedal edema and Yes no calf tenderness Psych Mental Status: mental status grossly normal Affect: normal affect Thought process: Normal thought process present Medical Decision Making Medical Decision Making MDM Narrative: Patient is a female, miscarriage in March of 2024, recently took home test which was positive, LMP 05/29/24 presenting to the ED with complaint of lower abdominal cramping. On exam patient is awake, A+Ox3, VS WNL, afebrile, normal neurological exam without focal deficits, physical exam findings as above. Given reported symptoms and physical exam findings, initial differential includes but is not limited to , ectopic , ectopic , threatened . Labs notable for HCG of 647. U/S shows possible single inrauterine gestational sac. My interpretation is in agreement with the radiologist's interpretation. Urinalysis is without evidence of infection. Results discussed with patient and all questions answered. Instructed patient that she will need follow up OB care, provided with resources. Return precautions discussed at bedside. Patient verbalized understanding of and agreement with plan. Differential Diagnosis Differential Diagnoses: The differential diagnosis associated with the presentation includes As per [facility] Lab Data [facility] Lab Attestation statement: I reviewed the patient's lab results. As per [facility] 07/09/24 08:08 07/09/24 08:08 Labs: Lab Results 07/09/24 Range/Units 08:08 WBC 9.1 (4.8-10.8) X10*3/uL RBC 4.19 L (4.20-5.50) X10*6/uL Hgb 13.8 (12.0-16.0) g/dl Hct 37.8 (37.0-47.0) % MCV 90.2 (80.0-98.0) fL MCH 32.9 (27.0-33.0) pg MCHC 36.5 H (31.0-35.0) g/dl RDW 11.8 (11.0-16.0) % Plt Count 259 (160-400) X10*3/uL MPV 10.0 (9.4-12.3) fL Immature Gran % (Auto) 0.2 (0.0-0.4) % Neut % (Auto) 71.8 (45-73) % Lymph % (Auto) 19.4 L (20-40) % [place] % (Auto) 7.6 (2-11) % Eos % (Auto) 0.8 (0-4) % Baso % (Auto) 0.2 (0-2) % Lymph # (Auto) 1.8 (1.2-4.9) X10*3/uL [place] # (Auto) 0.7 (0.1-1.2) X10*3/uL Eos # (Auto) 0.1 (0.0-0.4) X10*3/uL Baso # (Auto) 0.0 (0.0-0.2) X10*3/uL Abs Immat Gran (auto) 0.02 (0.00-0.03) X10*3/uL Absolute Neuts (auto) 6.5 (2.0-8.3) x10*3/uL Absolute Nucleated RBC 0.000 (0.0-0.012) X10*3/uL Nucleated RBC % (auto) 0.0 (0.0-0.2) /100WBC Sodium 138 (135-145) mmol/L Potassium 3.6 (3.3-5.1) mmol/L Chloride 110 H (96-108) mmol/L Carbon Dioxide 22 (22-29) mmol/L Anion Gap 10 L (12-20) BUN 14 (9-16) mg/dL Creatinine 0.68 (0.5-1.4) mg/dL Estim Creat Clear Calc 104.4 Estimated GFR > 60 Random Glucose 98 (60-115) mg/dL Calcium 9.0 D (8.4-10.2) mg/dL Beta HCG, Quant 647 mIU/mL Urine Color Yellow Urine Appearance Clear Urine pH 6.0 (5.0-9.0) Ur Specific [place] 1.025 (1.005-1.025) Urine Protein Negative (Neg-Trace) mg/dL Urine Glucose (UA) Negative (Negative) mg/dL Urine Ketones Negative (Negative) mg/dL Urine Blood Negative (Negative) Urine Nitrite Negative (Negative) Ur Leukocyte Esterase Negative (Negative) Urine Test POSITIVE H (NEGATIVE) Independent Interpretation I performed an independent interpretation of an: Ultrasound Interpretation: U/S shows possible single inrauterine gestational sac. Radiology Impression Discussion of test interpretation with radiology: I have reviewed the radiologist's reading. Radiologist Impression: No other products of conception identified No subchorionic bleed. There is a possible left ovarian 1.9 x 1.8 x 1.6 cm corpus luteal cyst. There is minimal simple appearing pelvic cul-de-sac fluid. There are no other pelvic masses identified on the current study. IMPRESSION: Possible single intrauterine gestational sac estimated 5 weeks 1 day gestational age by today's ultrasound criteria. External Record Review External record reviewed: Inpatient record, Office record and Outpatient record Discharge Plan Discharge Clinical Impression: Early stage of Patient Disposition: Home, Self-Care Instructions: (ED), at 7 to 10 Weeks (ED) Additional Instructions: You were evaluated in the emergency department today for lower abdominal cramping and positive home test. Your hCG level was 647 at today's visit. Your ultrasound showed an intrauterine gestational sac. It is important that you establish care with an WINDOWS [employer] ADMINISTRATOR as soon as possible. Return to the emergency department if you develop vaginal bleeding, abnormal vaginal discharge, worsening pain or any other new or concerning symptoms. Prescriptions: No Action cefixime 400 mg capsule 400 mg PO DAILY 7 Days Qty: 7 0RF nitrofurantoin macrocrystal 100 mg capsule 100 mg PO BID 7 Days Qty: 14 0RF Rx Instructions: must administer with a meal/food phenazopyridine [Pyridium] 100 mg tablet 100 mg PO TID PRN (Reason: dysuria) Qty: 20 0RF cyclobenzaprine 5 mg tablet 5 mg PO TID PRN (Reason: muscle spasm) Qty: 7 0RF ibuprofen 600 mg tablet 600 mg PO TID PRN (Reason: fever or pain) Qty: 20 0RF albuterol sulfate 90 mcg/actuation HFA aerosol inhaler 1 inh inhalation QID PRN (Reason: shortness of breath or wheezing) Qty: 6.7 0RF Referrals: [facility] [Provider Group] [facility] ADMINISTR[facility] [Provider Group] Print Language: Citizen Of [place]
[2024-07-09 08:18] LABS: MANUAL DIFF FLAG NO
[2024-07-09 08:23] LABS: Basophils Percent Auto 0.2 % (0-2); Eosinophils Absolute Auto 0.1 X10*3/uL (0.0-0.4); Eosinophils Percent Auto 0.8 % (0-4); Hematocrit 37.8 % (37.0-47.0); Hemoglobin 13.8 g/dl (12.0-16.0); Imm Gran Abs Auto 0.02 X10*3/uL (0.00-0.03); Imm Gran Pct Auto 0.2 % (0.0-0.4); Lymphocytes Absolute Auto 1.8 X10*3/uL (1.2-4.9); Lymphocytes Percent Auto 19.4 % (20-40); Mean Corpuscular HGB Conc 36.5 g/dl (31.0-35.0); Mean Corpuscular Hemoglobin 32.9 pg (27.0-33.0); Mean Corpuscular Volume 90.2 fL (80.0-98.0); Monocytes Absolute Auto 0.7 X10*3/uL (0.1-1.2); Monocytes Percent Auto 7.6 % (2-11); Neutrophils Absolute Auto 6.5 x10*3/uL (2.0-8.3); Neutrophils Percent Auto 71.8 % (45-73); Platelet Count 259 X10*3/uL (160-400); Red Blood Count 4.19 X10*6/uL (4.20-5.50); Red Cell Distribution Width 11.8 % (11.0-16.0); White Blood Count 9.1 X10*3/uL (4.8-10.8)
[2024-07-09 08:24] LABS: Appearance Urine Clear; Color Urine Yellow; Glucose Urine UA Negative (Negative); Leukocyte Esterase Urine Negative (Negative); Nitrite Urine Negative (Negative); Specific Gravity - Urine 1.025 (1.005-1.025); Urine Blood Negative (Negative); Urine Ketones Negative (Negative); Urine Protein Negative (Neg-Trace)
[2024-07-09 08:30] LABS: UPreg QC Valid YES; Urine Pregnancy POSITIVE (NEGATIVE)
[2024-07-09 08:32] LABS: Anion Gap 10 (12-20); Blood Urea Nitrogen 14 mg/dL (9-16); Carbon Dioxide 22 mmol/L (22-29); Chloride 110 mmol/L (96-108); Creatinine Clr Calc Pharmacy 104.4; Estimated Glomerular Filt Rate > 60; Glucose Random 98 mg/dL (60-115); Potassium 3.6 mmol/L (3.3-5.1); Sodium 138 mmol/L (135-145)
[2024-07-09 08:40] LABS: HCG Quantitative 647 mIU/mL
[2024-07-09 10:37] VITALS: BP 115/76; PULSE 82; RESP 20; TEMP 36.1; O2SAT 98
== END 2024-07-09 10:38 | disposition home or self-care (01) ==
PROVIDERS: Emergency Provider Emergency Medicine
DX: O26.891 Other specified pregnancy related conditions, first trimester (principal); R10.30 Lower abdominal pain, unspecified; O34.81 Maternal care for other abnormalities of pelvic organs, first trimester; N83.12 Corpus luteum cyst of left ovary; Z3A.01 Less than 8 weeks gestation of pregnancy
CPT/HCPCS: 36415; 76801; 76817; 80048; 81003; 81025; 84702; 85025; 99282; 99284